=== PATIENT | female | born 1985 | race Caucasian/White ===

== ENCOUNTER 2016-06-12 10:17 | Emergency (ER) | payer OTHER ==
[~2016-06-12] VITALS: Ht 157.5 cm; Wt 73.0 kg
[~2016-06-12 10:17] MED LIST: AMOXICILLIN500 M1; AMOXICILLIN875 MG PO; CHERATUSSIN AC473 ML PO; CLARITIN10 M3 PO; FLONASE16 G1 BOTH NARES; MOTRIN IB200 MG PO; MOTRIN600 MG PO; MUCUS ER600 MG PO; NAPROSYN500 MG PO; NOHOMEMEDS; PEN-VEE K,VEET500 MG PO; PERCOCET 10/1 TABLET; ROBITUSSIN AC,T10 ML PO; SUDAFED PE PRE1 EAC1 PO; TAMIFLU75 MG PO; TESSALON PERLE100 MG PO; TESSALON200 MG PO; TRAMADOL HCL50 MG PO; TYLENOL EXTRA500 MG PO; TYLENOL REGULA325 MG PO; ULTRAM50 MG PO; ZITHROMAX Z-PA250 MG PO; ZOFRAN ODT4 MG PO
[2016-06-12 11:21] LABS: HEMATOCRIT 39.7 % (36.0-46.0); MCH 29.3 PG (29.0-34.0); MCV 88.8 FL (83-99); MEAN PLAT.VOLUME 9.8 uM^3 (9.5-12.4); PLATELET COUNT 290 K/uL (156-360); RBC DIS.WIDTH-CV 13.7 % (11.8-14.6); RBC DIS.WIDTH-SD 43.8 % (39-53); RED BLOOD COUNT 4.47 M/uL (3.80-5.20); WHITE BLOOD COUNT 7.4 K/uL (4.1-10.2)
[2016-06-12 11:31] LABS: CHLORIDE 106 mEq/L (99-109); POTASSIUM 3.9 mEq/L (3.7-5.4); SODIUM 138 mEq/L (136-147)
[2016-06-12 11:34] LABS: GLUCOSE 96 mg/dL (70-99)
[2016-06-12 11:35] LABS: ANION GAP 12 MEQ/L (2-14)
[2016-06-12 11:36] LABS: TOTAL BILIRUBIN 0.5 mg/dL (0.0-1.0)
[2016-06-12 11:37] LABS: ALKALINE PHOSPHATASE 76 IU/L (3-129); GFR ESTIMATE (CALCULATED) > 59 mL/min/
[2016-06-12 11:38] LABS: UREA NITROGEN (BUN) 12 mg/dL (9-23)
[2016-06-12 11:40] LABS: ADD MIUA? YES; BILIRUBIN NEGATIVE; BLOOD NEGATIVE; COLOR YELLOW ((YELLOW)); GLUCOSE (STRIP) NEGATIVE; KETONES NEGATIVE; LEUKOCYTES SMALL; NITRITE NEGATIVE; PROTEIN (STRIP) NEGATIVE; SPECIFIC GRAVITY 1.017 (1.000-1.030); UROBILINOGEN 0.2 MG/DL (0.2-1.0)
[2016-06-12 11:41] LABS: LIPASE 21 U/L (1.0-51.0)
[2016-06-12 11:50] LABS: QUANTITATIVE HCG < 4.0 MIU/ML
[2016-06-12 12:13] LABS: BACTERIA NONE SEEN; CASTS NONE SEEN /LPF; CRYSTALS NONE SEEN; EPITHELIAL CELLS 1+; MUCUS 1+; RED BLOOD CELLS NONE SEEN /HPF (0-5); WHITE BLOOD CELLS 0-5 /HPF (0-5)
[2016-06-12] MEDS ORDERED: ZOFRAN ODT4 MG PO (12:32)
[2016-06-12 12:59] VITALS: BP 128/80
== END 2016-06-12 13:01 | disposition home or self-care (01) ==
LOC: EME 10:17
PROVIDERS: Physician Assistant
DX: N39.0 Urinary tract infection, site not specified (principal); R10.30 Lower abdominal pain, unspecified; R11.2 Nausea with vomiting, unspecified
CPT/HCPCS: 80053; 81003; 83690; 84702; 85027; 99281; 99284

== ENCOUNTER 2016-07-06 21:06 | Emergency (ER) | payer OTHER ==
[~2016-07-06] VITALS: Ht 157.5 cm; Wt 75.3 kg
[2016-07-07] MEDS ORDERED: NAPROSYN500 MG PO (00:09)
[2016-07-07] MEDS ORDERED: FLEXERIL5 MG PO (00:09)
[2016-07-07 00:21] VITALS: BP 140/89
== END 2016-07-07 00:28 | disposition home or self-care (01) ==
LOC: EME 21:06
DX: S63.502A Unspecified sprain of left wrist, initial encounter (principal); S33.5XXA Sprain of ligaments of lumbar spine, initial encounter; S46.912A Strain of unspecified muscle, fascia and tendon at shoulder and upper arm level, left arm, initial encounter; W18.30XA Fall on same level, unspecified, initial encounter
CPT/HCPCS: 73110; 99281; 99284

== ENCOUNTER 2017-03-31 18:53 | Emergency (ER) | payer OTHER ==
[~2017-03-31] VITALS: Ht 157.5 cm; Wt 75.8 kg
[~2017-03-31 18:53] MED LIST changes: +FLEXERIL5 MG PO
[2017-03-31 19:16] LABS: ADD MIUA? YES; BILIRUBIN NEGATIVE; BLOOD NEGATIVE; COLOR YELLOW ((YELLOW)); GLUCOSE (STRIP) NEGATIVE; KETONES NEGATIVE; LEUKOCYTES TRACE; NITRITE NEGATIVE; PROTEIN (STRIP) NEGATIVE; SPECIFIC GRAVITY 1.025 (1.000-1.030); UROBILINOGEN 0.2 MG/DL (0.2-1.0)
[2017-03-31 19:56] LABS: BACTERIA NONE SEEN /HPF; EPITHELIAL CELLS 2+ /HPF; MUCUS 3+ /LPF; UCUL ADDED? NO; WHITE BLOOD CELLS 0-5 /HPF (0-5)
[2017-03-31 20:01] LABS: HEMATOCRIT 42.3 % (36.0-46.0); MCH 29.3 PG (29.0-34.0); MCHC 32.4 G/DL (30.0-36.0); MCV 90.6 FL (83-99); MEAN PLAT.VOLUME 9.6 uM^3 (9.5-12.4); PLATELET COUNT 306 K/uL (156-360); RBC DIS.WIDTH-CV 13.2 % (11.8-14.6); RBC DIS.WIDTH-SD 43.8 % (39-53); RED BLOOD COUNT 4.67 M/uL (3.80-5.20); WHITE BLOOD COUNT 8.9 K/uL (4.1-10.2)
[2017-03-31 20:19] LABS: ANION GAP 6 MEQ/L (2-14); CHLORIDE 104 MEQ/L (99-109); POTASSIUM 3.9 MEQ/L (3.7-5.4); SAMPLE HEMOLYSIS CHECK 0; SAMPLE ICTERIC CHECK 0; SAMPLE LIPEMIA CHECK 0; SODIUM 138 MEQ/L (136-147)
[2017-03-31 20:24] LABS: GFR ESTIMATE (CALCULATED) > 59 mL/min/; GLUCOSE 101 mg/dL (70-99); UREA NITROGEN (BUN) 8 mg/dL (9-23)
[2017-03-31 21:25] LABS: QUANTITATIVE HCG < 4.0 MIU/ML
[2017-03-31] MEDS ORDERED: FLOMAX0.4 MG PO (22:12)
[2017-03-31] MEDS ORDERED: PERCOCET 5/31 TABLET PO (22:39)
[2017-03-31] MEDS ORDERED: MOTRIN800 MG PO (22:39)
[2017-03-31] MEDS ORDERED: ZOFRAN ODT4 MG PO (22:39)
[2017-03-31 22:50] VITALS: BP 124/87
== END 2017-03-31 22:52 | disposition home or self-care (01) ==
LOC: EME 18:53
DX: N20.0 Calculus of kidney (principal); Z87.440 Personal history of urinary (tract) infections
CPT/HCPCS: 74176; 80048; 81003; 84702; 85027; 87086; 99281; 99285; J1885

== ENCOUNTER 2017-09-17 07:23 | Emergency (ER) | payer OTHER ==
[~2017-09-17] VITALS: Ht 157.5 cm; Wt 76.0 kg
[~2017-09-17 07:23] MED LIST changes: +FLOMAX0.4 MG PO; +MOTRIN800 MG PO; +PERCOCET 5/31 TABLET PO
[2017-09-17 08:05] LABS: BASOPHIL (%) 0.5 % (0-1); EOSINOPHIL COUNT 0.2 K/uL (0-0.3); HEMATOCRIT 38.7 % (36.0-46.0); HEMOGLOBIN 13.1 G/DL (11.9-15.5); IMMATURE GRANULOCYTE (%) 0.3 % (0.0-0.7); LYMPHOCYTE (%) 30.1 % (15-42); LYMPHOCYTE COUNT 2.3 K/uL (1.0-2.8); MCH 30.1 PG (29.0-34.0); MCHC 33.9 G/DL (30.0-36.0); MONOCYTE (%) 9.4 % (3-12); MONOCYTE COUNT 0.7 K/uL (0-0.8); NEUTROPHIL (%) 57.7 % (45-76); NEUTROPHIL COUNT 4.4 K/uL (1.8-6.4); PLATELET COUNT 291 K/uL (156-360); RBC DIS.WIDTH-CV 13.1 % (11.8-14.6); RBC DIS.WIDTH-SD 42.7 % (39-53); RED BLOOD COUNT 4.35 M/uL (3.80-5.20); WHITE BLOOD COUNT 7.6 K/uL (4.1-10.2)
[2017-09-17 08:13] LABS: CHLORIDE 107 mEq/L (99-109); POTASSIUM 3.9 mEq/L (3.7-5.4); SODIUM 140 mEq/L (136-147)
[2017-09-17 08:15] LABS: GLUCOSE 107 mg/dL (70-99)
[2017-09-17 08:19] LABS: CREATININE 0.8 mg/dL (0.6-1.3); GFR ESTIMATE (CALCULATED) > 59 mL/min/
[2017-09-17 08:20] LABS: UREA NITROGEN (BUN) 12 mg/dL (9-23)
[2017-09-17 08:24] LABS: APPEARANCE CLEAR ((CLEAR)); BILIRUBIN NEGATIVE; BLOOD MODERATE; COLOR YELLOW ((YELLOW)); GLUCOSE (STRIP) NEGATIVE; KETONES NEGATIVE; LEUKOCYTES NEGATIVE; NITRITE NEGATIVE; PROTEIN (STRIP) 30; UROBILINOGEN 0.2 MG/DL (0.2-1.0)
[2017-09-17 08:29] LABS: QUANTITATIVE HCG < 4.0 MIU/ML
[2017-09-17 08:39] LABS: BACTERIA RARE /HPF; EPITHELIAL CELLS RARE /HPF; MUCUS TRACE /LPF; RED BLOOD CELLS 40-50 /HPF (0-5)
[2017-09-17] MEDS ORDERED: FLOMAX0.4 MG PO (10:43)
[2017-09-17] MEDS ORDERED: CIPRO500 MG PO (10:43)
[2017-09-17] MEDS ORDERED: PERCOCET 5/31 TABLET PO (10:43)
[2017-09-17] MEDS ORDERED: ZOFRAN4 MG PO (10:43)
[2017-09-17 10:59] VITALS: BP 105/77
== END 2017-09-17 11:01 | disposition home or self-care (01) ==
LOC: EME 07:23
PROVIDERS: Emergency Medicine
DX: N13.2 Hydronephrosis with renal and ureteral calculous obstruction (principal); Z87.442 Personal history of urinary calculi; Z87.440 Personal history of urinary (tract) infections
CPT/HCPCS: 74176; 80048; 81003; 84702; 85025; 99281; 99284; J1885; J7030